=== PATIENT | male | born 1945 | race Caucasian/White ===

== ENCOUNTER → 2018-10-18 | Outpatient (CLI) | payer MEDICARE, OTHER ==
[~2018-10-18] MED LIST: METFORMIN500 MG PO; MULTI VITAMINS1 TAB PO; PRILOSEC 20MG20 MG PO; SIMVASTATIN20 MG PO; VITAMIN C BUFF500 MG PO; VITAMIN C250 M1 PO; ZOCOR 40MG40 MG PO
== END ==
LOC: COL.RAD 10-14 13:45
DX: S76.312A Strain of muscle, fascia and tendon of the posterior muscle group at thigh level, left thigh, initial encounter (principal)
CPT/HCPCS: J3301; Q9967

== ENCOUNTER → 2019-04-03 | Outpatient (CLI) | payer MEDICARE, OTHER | LOC: COL.RAD 07:30 | DX: M25.552 Pain in left hip (principal) | CPT/HCPCS: J3301; Q9967 ==

== ENCOUNTER → 2019-08-07 | Outpatient (CLI) | payer MEDICARE, OTHER | LOC: COL.RAD 14:15 | DX: M79.651 Pain in right thigh (principal) | CPT/HCPCS: J3301; Q9967 ==

== ENCOUNTER → 2020-02-12 | Outpatient (CLI) | payer MEDICARE, OTHER | LOC: COL.RAD 11:41 | DX: M54.5 Low back pain (principal) | CPT/HCPCS: J3301 ==